=== PATIENT | female | born 1975 | race Caucasian/White ===

== ENCOUNTER 2016-09-12 09:58 | Emergency (ER) | payer SELFPAY ==
[~2016-09-12] VITALS: Ht 170.2 cm; Wt 90.0 kg
[2016-09-12 10:02] VITALS: Ht 170.2 cm; Wt 90.0 kg
[2016-09-12] MEDS ORDERED: HYDROCODONE/APAP (5/325) TAB PO ONE (10:30)
--- NOTE | 2016-09-12 11:07 | RADRPT ---
PROCEDURE: XR Chest. CLINICAL INDICATION: chest pain TECHNIQUE: Single frontal view of the chest was obtained COMPARISON: None FINDINGS: The heart and mediastinum are within normal limits. The lungs are clear. There is no pleural effusion or pneumothorax. RPTAT: AA IMPRESSION: No acute disease. .Vic Grimm MD, Date Time Electronically viewed and signed by .Vic Grimm MD, on 09/12/2016 11:07 .S/
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
[2016-09-12] MEDS ORDERED: TRAM50TA2 PO (11:47)
[2016-09-12] MEDS ORDERED: NAPR-260 PO (11:48)
[2016-09-12] MEDS ORDERED: CYCL-319 PO (11:48)
[2016-09-12] MEDS ORDERED: NEOM1PAC TP (11:50)
== END 2016-09-12 11:58 | disposition home or self-care (01) ==
LOC: FTE 09:58
DX: S40.022A Contusion of left upper arm, initial encounter (principal); I10 Essential (primary) hypertension; E11.9 Type 2 diabetes mellitus without complications; V49.40XA Driver injured in collision with unspecified motor vehicles in traffic accident, initial encounter
CPT/HCPCS: 71010; 73030; 73060